=== PATIENT | male | born 1955 | race Caucasian/White ===

== ENCOUNTER 2017-07-20 00:31 | Emergency (ER) | payer MEDICARE, OTHER ==
[~2017-07-20] VITALS: Ht 172.7 cm; Wt 83.2 kg
[2017-07-20] MEDS ORDERED: METF500T4 PO (00:34)
[2017-07-20 00:57] LABS: GLUCOSE,POINT OF CARE 153 MG/DL (70-110)
[2017-07-20] MEDS ORDERED: ASPIRIN 81 MG CHEWABLE TABLET PO ONE (01:00)
[2017-07-20] MEDS ORDERED: ONDANSETRON HCL 4 MG/2 ML VIAL IVP ONE ×2 (01:00)
[2017-07-20] MEDS ORDERED: HYDROmorphone 2 MG/ML SYRINGE IVP ONE (01:00)
[2017-07-20] MEDS ORDERED: NITROGLYCERIN 0.6 MG SUBLINGUAL TABLET #100 SL ONE (01:00)
[2017-07-20] MEDS ORDERED: NITROGLYCERIN 2% (1 GM=INCH) PACKET TP ONE (01:00)
[2017-07-20] MEDS ORDERED: MORPHINE SULFATE 4 MG/ML SYRINGE IVP ONE ×4 (01:00→02:15)
[2017-07-20 01:10] LABS: BASOPHILS % (AUTO) 0.3 % (0.0-2.0); EOSINOPHILS % (AUTO) 1.1 % (1.0-6.0); HEMOGLOBIN 15.4 g/dL (13.5-17.5); LYMPHOCYTES # (AUTO) 3.5 K/uL (1.0-4.8); LYMPHOCYTES % (AUTO) 35.2 % (22.0-44.0); MEAN CORPUSCULAR HEMOGLOBIN 30.4 pg (26.0-34.0); MEAN CORPUSCULAR HGB CONC 34.2 G/dL (31.0-37.0); MEAN CORPUSCULAR VOLUME 89 fL (80-100); NEUTROPHILS # (AUTO) 5.3 K/uL (1.8-7.7); NEUTROPHILS % (AUTO) 53.4 % (40.0-70.0); PLATELET COUNT (AUTO) 296 K/uL (150-450); RED BLOOD CELL COUNT(AUTO) 5.06 MIL/uL (4.50-5.90); RED CELL DISTRIBUTION WIDTH 13.1 % (11.5-14.5); WHITE BLOOD COUNT (AUTO) 9.9 K/uL (4.5-11.0)
[2017-07-20 01:19] LABS: INR 0.9 (0.9-1.1); PROTHROMBIN TIME 9.4 SEC (9.4-11.6)
[2017-07-20 01:20] LABS: CALCIUM, TOTAL 9.2 mg/dL (8.8-10.5); CREATININE 1.26 mg/dL (0.60-1.30); POTASSIUM 3.2 mmol/L (3.5-5.1)
[2017-07-20 01:44] LABS: ALBUMIN 3.7 g/dL (3.4-5.0); BILIRUBIN,TOTAL 0.4 mg/dL (0.1-1.0); CREATINE KINASE MB 23.5 ng/mL (0-5); TOTAL PROTEIN, SERUM 7.4 g/dL (6.4-8.2)
[2017-07-20] MEDS ORDERED: HEPARIN SODIUM 25000 UNITS/D5W 250 ML IV PRN (01:44)
[2017-07-20] MEDS ORDERED: HEPARIN SODIUM,PORCINE 5,000 UNITS/ML VIAL IVP ONE ×2 (01:45→02:00)
[2017-07-20] MEDS ORDERED: HEPARIN SODIUM,PORCINE 5,000 UNITS/ML VIAL IVP PRN ×2 (01:45)
[2017-07-20] MEDS ORDERED: SIMVASTATIN 20 MG TABLET PO ONE (02:00)
[2017-07-20] MEDS ORDERED: SODIUM CHLORIDE 0.9% 1,000 ML IV ONE ×2 (02:05→02:15)
[2017-07-20 02:11] VITALS: BP 144/75
== END 2017-07-20 02:21 | disposition short-term general hospital (02) ==
LOC: EMS 00:34
DX: I21.3 ST elevation (STEMI) myocardial infarction of unspecified site (principal); E11.65 Type 2 diabetes mellitus with hyperglycemia; E87.6 Hypokalemia; R73.9 Hyperglycemia, unspecified
CPT/HCPCS: 36415; 71010; 80053; 82550; 82553; 82962; 83880; 84484; 85025; 85610; 85730; 93005; 96365; 96374; 96375; 96376; 99291; J1644 ×2; J2270; J2405; J7030